=== PATIENT | male | born 1965 | race African-American/Black ===

== ENCOUNTER 2019-08-23 14:39 | Inpatient (IN) | payer OTHER ==
[~2019-08-23] VITALS: Ht 175.3 cm; Wt 98.0 kg
--- NOTE | 2019-08-23 15:00 | NUR ---
Patient admitted from home for clinical trials, calm and denies pain or any discomfort. Respiratory even and unlabored with room air. Kept bed in locked and low position. Will continue to monitor fro safety.
[2019-08-23] MEDS ORDERED: MISCELLANEOUS MED 1 EA EA PO SCH (16:00)
[2019-08-23] MEDS ORDERED: LORAZEPAM 1 MG TABLET PO PRN (16:00)
[2019-08-23] MEDS ORDERED: BENZTROPINE MESYLATE (1 MG) 1 MG TABLET PO PRN ×2 (16:00→16:30)
[2019-08-23] MEDS ORDERED: ZOLPIDEM TARTRATE 10 MG TABLET PO PRN (16:00)
[2019-08-23] MEDS ORDERED: PROPRANOLOL HCL 10 MG TABLET PO PRN (16:30)
[2019-08-23] MEDS ORDERED: MAGNESIUM HYDROXIDE 30 ML UDC PO PRN (16:30)
[2019-08-23] MEDS ORDERED: IBUPROFEN 200 MG TABLET PO PRN (16:30)
[2019-08-23] MEDS ORDERED: MAG HYDROX/AL HYDROX/SIMETH 30 ML UDC PO PRN (16:30)
[2019-08-23] MEDS: HYDROCHLOROTHIAZIDE 25 MG PO SCH (17:00)
--- NOTE | 2019-08-23 18:43 | NUR ---
Patient has hydrochlorothiazide scheduled at 1700, called x 3 but did not deliver, unable to given. Addendum: 08/23/19 at 1847 by SOFIA BEAR RN error
--- NOTE | 2019-08-23 18:47 | NUR ---
Patient has hydrochlorothiazide scheduled at 1700, called pharmacy x 3 but did not deliver, unable to given med.
--- NOTE | 2019-08-23 19:38 | NUR ---
GPS RN NOTES: OPENING RECEIVED PT IN HIS ROOM LAYING IN BED AWAKE. PT IS ALERT ORIENTED X4. PT IS CALM, COOPERATIVE, FRIENDLY, TALKATIVE, NEEDY, AND ISOLATIVE. PT IS IN HIS ROOM MOST OF THE TIME. NO S/S OF SOB. BREATHING EVEN AND UNLABORED. NO RESPIRATORY DISTRESS. NO S/S OF PAIN AT THIS TIME. NO SI OR HI AT THIS TIME. PT IS AMBULATORY AND CONTINENT. VITALS CHECKED WNL. CALL TOLENTION WITHIN REACH. ROOM SAFETY CHECK Q 15MIN. CONTINUE TO MONITOR.
[2019-08-23 20:20] VITALS: BP 148/78
--- NOTE | 2019-08-24 01:30 | NUR ---
GPS RN NOTES: UPON DOING ROUNDS PT AWAKE WALKING IN THE HALLWAY NEAR HIS ROOM. PT STATED HE WOULD LIKE TO WALK BECAUSE HE IS USUALLY AWAKE DURING THIS TIME WHEN HE IS AT HOME. OFFERED PT TO WALK IN THE DAY ROOM. PT AGREED AND IS CURRENTLY WALKING IN THE DAY ROOM INSTEAD OF HALLWAY. STAFF MEMBER CLOSE BY NEAR DAY ROOM TO MONITOR PT. PT STATED HE DOES NOT WANT TO SLEEP AT THIS TIME BECAUSE DURING THE DAY HE ALREADY SLEPT. PT HAS NO S/S OF PAIN AT THIS TIME. BREATHING EVENING AND UNLABORED. NO SOB. CONTINUE TO MONITOR.
[2019-08-24 08:00] VITALS: BP 128/88
[2019-08-24] MEDS: HYDROCHLOROTHIAZIDE 25 MG PO SCH ×2 (08:40→17:30)
[2019-08-24 16:00] VITALS: BP 135/86
--- NOTE | 2019-08-24 18:37 | NUR ---
GPS/RN NO CHANGES THROUGHOUT THE SHIFT PT AMBULATORY, VSS NO ACUTE DISTRESS NOTED SMOKE BREAKS PROVIDED , TOOK THE SHOWER TODAY,LIKES TO AMBULATE IN THE HALLWAY , PAIN MANAGEMENT PROVIDED ORDERED.
[2019-08-24] MEDS: ZOLPIDEM TARTRATE 10 MG TABLET PO PRN (21:06)
[2019-08-24] MEDS: ACETAMINOPHEN ES 500 MG TABLET PO PRN (21:06)
[2019-08-25] MEDS: ACETAMINOPHEN ES 500 MG TABLET PO PRN ×2 (05:06→20:45)
--- NOTE | 2019-08-25 06:30 | NUR ---
RN NOTES Patient noted able to take shower independently; had smoking by himself x3 within the shift; noted walking on the hallway for a few minutes x3 within the shift. No hallucination, inappropriate behavior noted within the shift. Patient denies any discomfort, no s/sx of distress noted. No new unusualities noted within the shift. All nursing needs attended, due meds given as ordered. Endorsed to the next shift.
[2019-08-25 08:00] VITALS: BP 125/77
[2019-08-25] MEDS: HYDROCHLOROTHIAZIDE 25 MG PO SCH ×2 (08:26→16:04)
--- NOTE | 2019-08-25 09:04 | NUR ---
RN-CO: Patient is alert and oriented x4, self care. Pt denied pain and discomforts.
--- NOTE | 2019-08-25 14:22 | NUR ---
RN-CO: PATIENT STATED THAT HE HEARS "CRAWLING SOUNDS IN HIS MIND." HE SAID HE IS USED TO IT.
[2019-08-25 15:39] VITALS: BP 123/78
--- NOTE | 2019-08-25 19:30 | NUR ---
GPS RN OPENING NOTE: RECEIVED PT IN ROOM, ABLE TO MAKE NEEDS KNOWN. PT COMPLIANT WITH MEDS AND PLAN OF CARE. PT DENIES CURRENT SI/HI/AH/VH. PT INDEPENDENT WITH ADLS AND INTAKE. PT IS ISOLATIVE AND WITHDRAWN.ALL NEEDS ATTENDED AND ANTICIPATED. WILL CONTINUE TO MONITOR PT Q15MIN FOR SAFETY AND BEHAVIOR.
[2019-08-25 19:51] VITALS: BP 146/91
--- NOTE | 2019-08-25 20:45 | NUR ---
GPS RN NOTE: PAIN PT. C/O OF SHOULDER PAIN AND REQUESTED TYLENOL. ADMINISTERED TYLENOL ES 1000 MG PO PRN ORDERED. WILL CONTINUE TO MONITOR FOR SAFETY AND BEHAVIOR.
[2019-08-25] MEDS: ZOLPIDEM TARTRATE 10 MG TABLET PO PRN (22:10)
--- NOTE | 2019-08-25 22:10 | NUR ---
GPS RN NOTE: INSOMNIA PT. C/O UNABLE TO SLEEP AND REQUESTED SLEEPING PILL. ADMINISTERED AMBIEN 10 MG PO PRN ORDERED. WILL CONTINUE TO MONITOR FOR SAFETY AND BEHAVIOR.
[2019-08-26 08:00] VITALS: BP 136/87
[2019-08-26] MEDS: HYDROCHLOROTHIAZIDE 25 MG PO SCH ×2 (09:28→16:15)
[2019-08-26] MEDS: IBUPROFEN 600 MG TABLET PO PRN ×2 (09:30→21:43)
[2019-08-26 16:00] VITALS: BP 123/94
--- NOTE | 2019-08-26 19:15 | NUR ---
GPS RN PM OPENING NOTE: REPORT RECIEVED FROM WALTER GUY. CLINICAL TRIAL PATIENT. REPORTS HAVING MILD VISUAL HALLUCINATIONS TODAY DENIES SI/HI. RECEIVED PT IN ROOM. BED DOWN AND LOCKED. PT COMPLIANT WITH MEDS AND PLAN OF CARE. PT DENIES CURRENT SI/HI. PT INDEPENDENT WITH ADLS AND INTAKE. WILL CONTINUE TO MONITOR PT Q15MIN FOR SAFETY AND BEHAVIOR.
[2019-08-26] MEDS: LORAZEPAM 1 MG TABLET FOR AGITATION PO PRN (20:01)
[2019-08-26 20:15] VITALS: BP 130/77
[2019-08-26] MEDS: ZOLPIDEM TARTRATE 10 MG TABLET PO PRN (21:43)
--- NOTE | 2019-08-27 07:30 | NUR ---
RN NOTE: REPORT RECEIVED, ASSESSMENT COMPLETE. PT RECEIVED LYING IN BED. NO ACUTE DISTRESS NOTED. VSS, AFEBRILE. PT A+OX3, ABLE TO MAKE NEEDS KNOWN. PT COMPLIANT WITH MEDICATION ADMINISTRATION AND PLAN OF CARE. NO ADVERSE RXN FROM MEDICATIONS NOTED. PT DENIES CURRENT SI/HI. AMBULATORY AND INDEPENDENT WITH ADLS AND INTAKE. WILL CONT TO MONITOR PT FOR SAFETY AND BEHAVIOR PER GPS PROTOCOL.
[2019-08-27 08:00] VITALS: BP 125/92
[2019-08-27] MEDS: HYDROCHLOROTHIAZIDE 25 MG PO SCH ×2 (09:03→16:24)
[2019-08-27] MEDS: IBUPROFEN 600 MG TABLET PO PRN (11:23)
--- NOTE | 2019-08-27 11:23 | NUR ---
RN NOTE: PAIN PT C/O 10 RIGHT SHOULDER PAIN. REQUESTING MOTRIN. MOTRIN PRN PO ADMINISTERED.
[2019-08-27 16:00] VITALS: BP 146/94
[2019-08-27 20:00] VITALS: BP 125/75
[2019-08-27] MEDS: LORAZEPAM 1 MG TABLET FOR AGITATION PO PRN (20:03)
--- NOTE | 2019-08-27 20:03 | NUR ---
ANXIETY: PRN ATIVAN GIVEN PATIENT VERBALIZED OF FEELING ANXIOUS & RESTLESS, REQUESTED TO GET ATIVAN. PRN ATIVAN 1 MG PO GIVEN ORDERED. WILL CONTINUE TO MONITOR.
[2019-08-27 20:12] VITALS: BP 125/75
[2019-08-27] MEDS: ZOLPIDEM TARTRATE 10 MG TABLET PO PRN (21:34)
--- NOTE | 2019-08-27 21:36 | NUR ---
PRN AMBIEN GIVEN PATIENT REQUESTED TO GET SLEEPING MEDICINE DUE TO SLEEPLESSNESS. PRN AMBIEN 10 MG PO GIVEN ORDERED. WILL CONTINUE TO MONITOR FOR EFFECTIVENESS.
[2019-08-27] MEDS: ACETAMINOPHEN ES 500 MG TABLET PO PRN (21:50)
--- NOTE | 2019-08-27 21:50 | NUR ---
PRN TYLENOL GIVEN PATIENT C/O RIGHT SHOULDER PAIN 06/03 & REQUESTED TO GET TYLENOL. PRN TYLENOL 1000 MG PO GIVEN ORDERED. WILL MONITOR CLOSELY FOR ANY CHANGES.
--- NOTE | 2019-08-27 23:47 | NUR ---
GPS RN NOTE PATIENT WOKE UP, AMBULATING IN THE HALLWAY, LISTENING TO THE MUSIC. CALM & COOPERATIVE AT THIS TIME. WILL CONTINUE TO MONITOR.
--- NOTE | 2019-08-28 01:16 | NUR ---
GPS RN NOTE PATIENT IS AWAKE & WANTED TO SMOKE, WENT DOWN TO SMOKE.
--- NOTE | 2019-08-28 01:30 | NUR ---
GPS RN NOTE PATIENT CAME BACK FROM SMOKING & WENT TO BED.
--- NOTE | 2019-08-28 07:30 | NUR ---
RN NOTE: RECEIVED PT LYING IN BED. NO ACUTE DISTRESS NOTED. VSS, AFEBRILE. PT A+OX3, ABLE TO MAKE NEEDS KNOWN. PT IS CALM AND COOPERATIVE. PT MEDICATED FOR PAIN TO RIGHT SHOULDER RATING 3/10. MORTIN ADMNISTERED. NO ADVERSE RXN TO MEDICATIONS NOTED. PT DENIES SI/HI AT PRESENT TIME. REPORTS AH OF "TAPPING SOUND" OVER NIGHT AND VH OF "BRANCHES AND SHADOWN". DENIES AH/VH AT PRESENT TIME. WILL CONT TO MONITOR PT FOR SAFETY AND BEHAVIOR PER GPS PROTOCOL.
[2019-08-28 08:00] VITALS: BP 147/98
[2019-08-28] MEDS: HYDROCHLOROTHIAZIDE 25 MG PO SCH ×2 (08:54→16:51)
[2019-08-28] MEDS: IBUPROFEN 600 MG TABLET PO PRN ×3 (08:58→21:37)
--- NOTE | 2019-08-28 09:01 | NUR ---
RN NOTE: PAIN PT C/O 06/03 RIGHT SHOULDER PAIN. MEDICATED WITH MOTRIN 600 MG PO PRN
[2019-08-28 16:27] VITALS: BP 122/99
--- NOTE | 2019-08-28 19:59 | NUR ---
GPS RN OPENING NOTE: RECEIVED PT IN ROOM, ABLE TO MAKE NEEDS KNOWN. PT COMPLIANT WITH MEDS AND PLAN OF CARE. PT DENIES CURRENT SI/HI/AH/VH. PT INDEPENDENT WITH ADLS AND INTAKE. PT IS ISOLATIVE AND WITHDRAWN.ALL NEEDS ATTENDED AND ANTICIPATED. WILL CONTINUE TO MONITOR FOR SAFETY AND BEHAVIOR.
[2019-08-28] MEDS: LORAZEPAM 1 MG TABLET FOR AGITATION PO PRN (20:18)
--- NOTE | 2019-08-28 20:18 | NUR ---
GPS RN NOTE: ANXIETY PT. C/O OF BEING ANXIOUS AND REQUESTED ATIVAN. ADMINISTERED ATIVAN 1MG PO PRN ORDERED. WILL CONTINUE TO MONITOR FOR SAFETY AND BEHAVIOR.
[2019-08-28 20:22] VITALS: BP 132/91
--- NOTE | 2019-08-28 21:37 | NUR ---
GPS RN NOTE: PAIN PT. C/O OF 09/03 SHOULDER PAIN AND REQUESTED IBUPROFEN. ADMINISTERED IBUPROFEN 600 MG PO PRN ORDERED. WILL CONTINUE TO MONITOR FOR SAFETY AND BEHAVIOR.
[2019-08-28] MEDS: ZOLPIDEM TARTRATE 10 MG TABLET PO PRN (21:38)
--- NOTE | 2019-08-28 21:38 | NUR ---
GPS RN NOTE: INSOMNIA PT. C/O UNABLE TO SLEEP AND REQUESTED FOR SLEEPING PILL. ADMINISTERED AMBIEN 10 MG PO PRN ORDERED. WILL CONTINUE TO MONITOR FOR SAFETY AND BEHAVIOR
[2019-08-29 08:00] VITALS: BP 121/87
[2019-08-29] MEDS: IBUPROFEN 600 MG TABLET PO PRN ×2 (08:31→22:06)
[2019-08-29] MEDS: HYDROCHLOROTHIAZIDE 25 MG PO SCH ×2 (08:31→16:37)
--- NOTE | 2019-08-29 08:56 | NUR ---
RN-CO: Patient is well groomed, stated that he still hear voices like whispers, crawling sound at night and having visual hallucinations like shadows. He is cooperative to care.
[2019-08-29 16:00] VITALS: BP 129/93
--- NOTE | 2019-08-29 19:30 | NUR ---
GPS RN NOTE, RECEIVED PATIENT AWAKE AND IN BED, PATIENT DENIES PAIN AT THIS TIME. PATIENT BREATHING IS UNLABORED WITH EQUAL RISE AND FALL OF THE CHEST. PATIENT IS ALERT AND ORIENTED X 4 ON ROOM AIR WITH A SPOO2 95%. PATIENT IS COMPLAINT WITH MEDICATION, BRIGHT, CALM, AND COOPERATIVE. PATIENT IS STILL AH AND VH AT THIS TIME. PATIENT DENIES SUICIDE AND HOMICIDAL IDEATIONS AT THIS TIME. PATIENT ASSISTED WITH TURNING AND REPOSITIONING Q2HR AND PRN FOR COMFORT AND CIRCULATION. PATIENT HAS NO NEEDS AT THIS TIME. PATIENT EDUCATED ON THE USE OF THE CALL TOLENTINO. PATIENT BED SIDE RAILS UP X 2 FOR SAFETY. PATIENT BED IS LOCKED AND LOW WILL CONTINUE TO MONITOR AND MAINTAIN SAFETY Q15 MIN WITH THE HELP OF STAFF.
[2019-08-29 20:07] VITALS: BP 134/93
[2019-08-29] MEDS: LORAZEPAM 1 MG TABLET FOR AGITATION PO PRN (20:21)
--- NOTE | 2019-08-29 20:21 | NUR ---
GPS RN NOTE, PATIENT HAS A COMPLAINT OF FEELING ANXIOUS AND IS REQUESTING ATIVAN AT THIS TIME. PATIENT VITAL SIGNS ARE STABLE. GAVE ATIVAN 1 MG PO Q4HR PRN ORDERED. WILL REASSESS FOR ANXIETY AND I WILL CONTINUE TO MONITOR THIS PATIENT.
[2019-08-29] MEDS: ZOLPIDEM TARTRATE 10 MG TABLET PO PRN (22:06)
--- NOTE | 2019-08-29 22:06 | NUR ---
GPS RN NOTE, PATIENT HAS A COMPLAINT OF CHRONIC RIGHT SHOULDER PAIN AT A 6 OUT 10 ON THE PAIN SCALE AND IS REQUESTING MOTRIN AT THIS TIME. PATIENT VITAL SIGNS ARE STABLE. GAVE MOTRIN 600 MG PO Q8HR PRN. WILL REASSESS PAIN AND I WILL CONTINUE TO MONITOR THIS PATIENT WITH THE HELP OF STAFF.
--- NOTE | 2019-08-29 22:06 | NUR ---
GPS RN NOTE, PATIENT HAS A COMPLAINT OF NOT BEING ABLE TO SLEEP AND IS REQUESTING AMBIEN AT THIS TIME. PATIENT VITAL SIGNS ARE STABLE. GAVE AMBIEN 10MG PO QHS PRN ORDERED. WILL REASSESS FOR INSOMNIA AND I WILL CONTINUE TO MONITOR THIS PATIENT.
[2019-08-30 08:00] VITALS: BP 141/91
[2019-08-30] MEDS: HYDROCHLOROTHIAZIDE 25 MG PO SCH ×2 (08:04→17:19)
[2019-08-30] MEDS: IBUPROFEN 600 MG TABLET PO PRN ×2 (08:04→22:03)
[2019-08-30 16:15] VITALS: BP 115/66
--- NOTE | 2019-08-30 19:30 | NUR ---
GPS RN NOTE, RECEIVED PATIENT AWAKE AND IN BED, PATIENT DENIES PAIN AT THIS TIME. PATIENT BREATHING IS UNLABORED WITH EQUAL RISE AND FALL OF THE CHEST. PATIENT IS ALERT AND ORIENTED X 4 ON ROOM AIR WITH A SPOO2 95%. PATIENT IS COMPLAINT WITH MEDICATION, PACING AT TIMES, CALM, AND COOPERATIVE. PATIENT VERBALIZED THAT HE THINKS HE SHOULD TAKE ATIVAN MORE OFTEN TO KEEP CALM. PATIENT IS STILL HAVING AH AND VH AT THIS TIME. PATIENT DENIES SUICIDE AND HOMICIDAL IDEATIONS AT THIS TIME. PATIENT ASSISTED WITH TURNING AND REPOSITIONING Q2HR AND PRN FOR COMFORT AND CIRCULATION. PATIENT HAS NO NEEDS AT THIS TIME. PATIENT EDUCATED ON THE USE OF THE CALL TOLENTINO. PATIENT BED SIDE RAILS UP X 2 FOR SAFETY. PATIENT BED IS LOCKED AND LOW WILL CONTINUE TO MONITOR AND MAINTAIN SAFETY Q15 MIN WITH THE HELP OF STAFF.
[2019-08-30 20:00] VITALS: BP 132/88
[2019-08-30] MEDS: LORAZEPAM 1 MG TABLET FOR AGITATION PO PRN (20:04)
--- NOTE | 2019-08-30 20:04 | NUR ---
GPS RN NOTE, PATIENT HAS A COMPLAINT OF FEELING ANXIOUS, RESTLESS, AND IS REQUESTING ATIVAN AT THIS TIME. PATIENT VITAL SIGNS ARE STABLE. GAVE ATIVAN 1 MG PO Q4HR PRN ORDERED. WILL REASSESS FOR ANXIETY AND I WILL CONTINUE TO MONITOR THIS PATIENT.
[2019-08-30] MEDS: ZOLPIDEM TARTRATE 10 MG TABLET PO PRN (22:03)
--- NOTE | 2019-08-30 22:04 | NUR ---
GPS RN NOTE, PATIENT HAS A COMPLAINT OF CHRONIC RIGHT SHOULDER PAIN AT A 4 OUT 10 ON THE PAIN SCALE AND IS REQUESTING MOTRIN AT THIS TIME. PATIENT VITAL SIGNS ARE STABLE. GAVE MOTRIN 600 MG PO Q8HR PRN. WILL REASSESS PAIN AND I WILL CONTINUE TO MONITOR THIS PATIENT WITH THE HELP OF STAFF.
[2019-08-31] MEDS: LORAZEPAM 1 MG TABLET FOR AGITATION PO PRN ×2 (02:38→20:10)
[2019-08-31] MEDS: ACETAMINOPHEN ES 500 MG TABLET PO PRN ×2 (04:40→17:46)
--- NOTE | 2019-08-31 04:40 | NUR ---
GPS RN NOTE, PATIENT HAS A COMPLAINT OF CHRONIC RIGHT SHOULDER PAIN AT A 2 OUT 10 ON THE PAIN SCALE AND IS REQUESTING TYLENOL ES AT THIS TIME. PATIENT VITAL SIGNS ARE STABLE. GAVE TYLENOL ES 1000MG PO Q8HR PRN. WILL REASSESS PAIN AND I WILL CONTINUE TO MONITOR THIS PATIENT WITH THE HELP OF STAFF.
[2019-08-31 08:00] VITALS: BP 122/88
[2019-08-31] MEDS: HYDROCHLOROTHIAZIDE 25 MG PO SCH ×2 (08:17→16:38)
[2019-08-31] MEDS: IBUPROFEN 600 MG TABLET PO PRN ×2 (08:24→22:41)
[2019-08-31 16:00] VITALS: BP 132/89
--- NOTE | 2019-08-31 19:30 | NUR ---
GPS-RN OPENING NOTE: RECEIVED PATIENT IN HIS ROOM LYING IN BED. AWAKE, A/OX4, IN NO APPARENT DISTRESS NOTED. PT STATED HE STILL HEARING VOICES WHISPERING, SOMEONE KNOCKING ON THE DOOR AND HAVING VISUAL HALLUCINATIONS LIKE SHADOWS. REORIENTATION PROVIDED. PT REQUESTED FOR ATIVAN. PRN ATIVAN GIVEN ORDERED. DENIES SI/HI AT THIS TIME. SAFETY PRECAUTIONS IN PLACE. WILL CONTINUE TO MONITOR FOR SAFETY AND BEHAVIOR.
[2019-08-31 20:00] VITALS: BP 121/98
--- NOTE | 2019-08-31 20:13 | NUR ---
GPS-RN NOTE: ANXIETY PATIENT C/O INCREASED ANXIETY. PT REQUESTED ATIVAN. ADMINISTERED ATIVAN 1MG PO ORDERED. WILL CONTINUE TO MONITOR FOR SAFETY.
[2019-08-31] MEDS: ZOLPIDEM TARTRATE 10 MG TABLET PO PRN (21:28)
--- NOTE | 2019-08-31 21:28 | NUR ---
GPS RN NOTE: INSOMNIA PT. C/O UNABLE TO SLEEP AND REQUESTED FOR SLEEPING PILL. ADMINISTERED AMBIEN 10 MG PO PRN ORDERED. WILL CONTINUE TO MONITOR.
[2019-09-01] MEDS: ACETAMINOPHEN ES 500 MG TABLET PO PRN (04:00)
[2019-09-01] MEDS: LORAZEPAM 1 MG TABLET FOR AGITATION PO PRN ×3 (04:00→20:00)
--- NOTE | 2019-09-01 04:00 | NUR ---
PRN TYLENOL GIVEN PATIENT C/O RIGHT SHOULDER PAIN ON A PAIN SCALE OF 3/10 & REQUESTED TO GET TYLENOL. PRN TYLENOL 1000 MG PO GIVEN ORDERED. WILL CONTINUE TO MONITOR FOR EFFECTIVENESS.
--- NOTE | 2019-09-01 04:00 | NUR ---
GPS-RN NOTE: ANXIETY PATIENT C/O FEELING ANXIOUS & RESTLESS, PT. REQUESTED FOR ATIVAN. PRN ATIVAN 1 MG PO GIVEN ORDERED. WILL CONTINUE TO MONITOR FOR SAFETY.
[2019-09-01 08:00] VITALS: BP 118/84
[2019-09-01] MEDS: HYDROCHLOROTHIAZIDE 25 MG PO SCH ×2 (08:54→17:21)
[2019-09-01] MEDS: IBUPROFEN 600 MG TABLET PO PRN ×2 (08:54→17:21)
--- NOTE | 2019-09-01 08:56 | NUR ---
rn notes administered Motrin 600 mg po,prn for right shoulder pain per patient request 09/03. continued monitoring.
--- NOTE | 2019-09-01 08:59 | NUR ---
rn notes administered Ativan 1 mg po prn for anxiety per patient request. v/s taken bp-118/84, p-73. continued monitoring.
[2019-09-01 16:00] VITALS: BP 131/94
--- NOTE | 2019-09-01 17:21 | NUR ---
rn notes administered Motrin 600 mg po prn for right arm pain .
--- NOTE | 2019-09-01 19:02 | NUR ---
GPS RN NOTES: OPENING RECEIVED PATIENT IN HIS ROOM LYING IN BED. AWAKE, A/OX4, IN NO APPARENT DISTRESS NOTED. BREATHING EVEN AND UNLABORED. NO SOB. NO PAIN NOTED. PT STATED HE HAS BEEN FEELING ANXIOUS AND PARANOID AT TIMES. PT IS COOPERATIVE, FRIENDLY, AND NEEDY. PT STATED THAT ATIVAN HAS BEEN HELPING HIM. REORIENTATION PROVIDED. DENIES SI/HI AT THIS TIME. SAFETY PRECAUTIONS IN PLACE. WILL CONTINUE TO MONITOR FOR SAFETY AND BEHAVIOR.
--- NOTE | 2019-09-01 20:01 | NUR ---
GPS RN NOTES: ANXIOUS PY C/O OF FEELING ANXIOUS. PT STATED, "I FEEL ANXIOUS RIGHT NOW MAY I HAVE ATIVAN." OFFERED ATICAN PRN PO ORDERED. PT AGREED AND TOLERATED MEDICATION WELL. CONTINUE TO MONITOR.
[2019-09-01 20:15] VITALS: BP 129/74
[2019-09-01] MEDS: ZOLPIDEM TARTRATE 10 MG TABLET PO PRN (21:36)
--- NOTE | 2019-09-01 21:38 | NUR ---
GPS RN NOTES: INSOMNIA PT C/O UNABLE TO SLEEP. PT REQUESTED SLEEPING MEDICATION. OFFERED AMBIEN PO PRN ORDERED. PT AGREED AND TOLERATED MEDICATION WELL. CONTINUE TO MONITOR.
--- NOTE | 2019-09-01 23:01 | NUR ---
GPS RN NOTES: INDIGESTION PT C/O OF INDIGESTION. PT STATED, " I HAD THAT VINEGAR DRESSING W/ MY SALAD AND THAT DIDN'T DO WELL WITH MT STOMACH." OFFERED MAALOX PRN PO. PT AGREED AND TOLERATED MEDICATION WELL. CONTINUE TO MONITOR.
[2019-09-02 01:29] VITALS: BP 127/86
[2019-09-02] MEDS: IBUPROFEN 600 MG TABLET PO PRN ×2 (01:48→21:51)
--- NOTE | 2019-09-02 01:49 | NUR ---
GPS RN NOTES: RIGHT SHOULDER PAIN PT C/O OF RIGHT SHOULDER PAIN. ASKED PT ON A SCALE FROM 0-10 WHAT IS THE PAIN. PT STATED, "7". CHECKED PTS VITALS. VITALS WNL. OFFERED MOTRIN 600 MG PO PRN ORDERED. PT AGREED AND TOLERATED MEDICATION WELL. CONTINUE TO MONITOR.
--- NOTE | 2019-09-02 04:59 | NUR ---
GPS RN NOTES: UPON DOING ROUNDS, PT IN HIS ROOM AWAKE. ENCOURAGE PATIENT TO EXPRESS THOUGHTS AND FEELINGS. PT STATED HE CANT SLEEP ANYMORE DUE TO A NIGHTMARE HE HAD. PT STATED, "ONCE I WAKE UP. I CANT REALLY SLEEP ANYMORE. " PT PREFER TO LEAVE THE LIGHTS ON. PT ALSO EXPRESSED HOW MUCH HE MISSES HIS PARTNER AND HOW HE IS NOT USE TO SLEEPING ALONE WITHOUT HER. PT WENT BACK TO BED RESTING. NO SOB. BREATHING EVEN AND UNLABORED. NO S/S OF RESP DISTRESS. CONTINUE TO MONITOR.
[2019-09-02] MEDS: ACETAMINOPHEN ES 500 MG TABLET PO PRN ×2 (06:54→19:21)
--- NOTE | 2019-09-02 06:56 | NUR ---
GPS RN NOTES: RIGHT SHOULDER PAIN PT C/O OF RIGHT SHOULDER PAIN. ASKED PT ON A SCALE FROM 0-10 WHAT IS THE PAIN. PT STATED, "3". OFFERED Tylenol PO PRN ORDERED. PT AGREED AND TOLERATED MEDICATION WELL. CONTINUE TO MONITOR.
--- NOTE | 2019-09-02 07:30 | NUR ---
RN OPENING NOTE: REPORT RECEIVED. ASSESSMENT COMPLETE. RECEIVED PT LYING IN BED. NO ACUTE DISTRESS NOTED. VSS, AFEBRILE. PT A+OX3,ABLE TO MAKE NEEDS KNOWN. PT C/O AH OF "TAPPING" AND VH OF "SHADOWS". PT C/O INCREASED ANXIETY AND INABILITY TO SLEEP AT NIGHT. PT COMPLIANT WITH MEDICATION ADMINISTRATION AND PLAN OF CARE. PT DENIES SI/HI AT PRESENT TIME. WILL CONT TO MONITOR PT FOR SAFETY AND BEHAVIOR PER GPS PROTOCOL.
[2019-09-02 08:00] VITALS: BP 123/84
[2019-09-02] MEDS: HYDROCHLOROTHIAZIDE 25 MG PO SCH ×2 (08:24→17:13)
[2019-09-02] MEDS: LORAZEPAM 1 MG TABLET FOR AGITATION PO PRN ×3 (08:31→19:04)
--- NOTE | 2019-09-02 08:31 | NUR ---
RN NOTE: PT C/O INCREASING ANXIETY. REQUESTING ATIVAN PRN. ATIVAN 1 MG PO PRN ADMINISTERED.
--- NOTE | 2019-09-02 12:54 | NUR ---
RN NOTE: ANXIETY PT C/O INCREASING ANXIETY. REQUESTING ATIVAN PRN. ATIVAN 1MG PO PRN ADMINISTERED.
[2019-09-02 16:00] VITALS: BP 117/86
--- NOTE | 2019-09-02 19:05 | NUR ---
RN NOTE: ANXIETY PT C/O INCREASED AGITATIO, AH AND VH. REQUESTING ATIVAN PRN. ATIVAN 1MG PO PRN ADMINISTERED.
--- NOTE | 2019-09-02 19:21 | NUR ---
GPS-RN: TYLENOL GIVEN PATIENT C/O RIGHT SHOULDER PAIN ON A PAIN SCALE OF 3/10 & REQUESTED FOR TYLENOL. PRN TYLENOL 1000 MG PO GIVEN ORDERED. WILL CONTINUE TO MONITOR FOR EFFECTIVENESS.
[2019-09-02 20:06] VITALS: BP 113/74
[2019-09-02] MEDS: ZOLPIDEM TARTRATE 10 MG TABLET PO PRN (21:36)
--- NOTE | 2019-09-02 21:36 | NUR ---
GPS RN NOTE: INSOMNIA PT. C/O UNABLE TO SLEEP AND REQUESTED FOR SLEEPING PILL. ADMINISTERED AMBIEN 10 MG PO PRN ORDERED. WILL CONTINUE TO MONITOR.
--- NOTE | 2019-09-02 21:51 | NUR ---
GPS RN NOTE: C/O RIGHT SHOULDER PAIN PT C/O OF RIGHT SHOULDER PAIN ON A PAIN SCALE OF 7/10. V/S WNL. PT REQUESTED FOR MOTRIN. ADMINISTERED MOTRIN 600 MG PO PRN ORDERED. WILL CONTINUE TO MONITOR EFFECTIVENESS OF MED.
[2019-09-03] MEDS: LORAZEPAM 1 MG TABLET FOR AGITATION PO PRN ×4 (02:28→20:58)
--- NOTE | 2019-09-03 02:28 | NUR ---
RN NOTE: ANXIETY PT C/O INCREASED ANXIETY. PT REQUESTED FOR ATIVAN. ADMINISTERED ATIVAN 1MG PO ORDERED. WILL CONTINUE TO MONITOR FOR SAFETY.
[2019-09-03] MEDS: IBUPROFEN 600 MG TABLET PO PRN ×2 (04:52→14:59)
[2019-09-03 08:00] VITALS: BP 112/96
[2019-09-03] MEDS: ACETAMINOPHEN ES 500 MG TABLET PO PRN ×2 (08:24→22:16)
[2019-09-03] MEDS: HYDROCHLOROTHIAZIDE 25 MG PO SCH ×2 (08:24→16:51)
--- NOTE | 2019-09-03 08:25 | NUR ---
RN NOTE: ANXIETY AND PAIN PT C/O INCREASED ANXIETY, AGITATION, AH AND VH. REQUESTING ATIVAN. ATIVAN 1MG PO PRN GIVEN. PT C/O 06/03 RIGHT SHOULDER PAIN. MEDICATED WITH TYLENOL 1000MG PO PRN.
--- NOTE | 2019-09-03 09:00 | NUR ---
RN NOTE: REPORT RECEIVED, ASSESSMENT COMPLETE. VSS, AFEBRILE. PT A+OX3, ABLE TO MAKE NEEDS KNOWN. PT IS ISOLATIVE AND WITHDRAWN. PT REPORTS CONT'S AH OF "TAPPING" AND VH OF "SHADOWNS" PT DENIES CAH/SI/HI. REPORTS INCREASED ANXIETY. MEDICATED WITH ATIVAN FOR ANIETY AND TYLENOL FOR RIGHT CHRONIC SHOULDER PAIN. PT INTERMITTENTLY SLEEPING. EASILY AROUSABLE. INDEPENDENT WITH SELF CARE, ADLS AND INTAKE. PT COMPLIANT WITH MEDICATION ADMINISTRATION AND PLAN OF CARE WILL CONT TO MONITOR PT FOR SAFETY AND BEHAVIOR PER GPS PROTOCOL.
--- NOTE | 2019-09-03 15:00 | NUR ---
RN NOTE: ANXIETY AND PAIN PT C/O INCREASING ANXIETY AND 3/10 RIGHT SHOULDER PAIN. MEDICATED WITH ATIVAN 1MG PO PRN AND IBRUPROFEN 600MG PO PRN
[2019-09-03 16:00] VITALS: BP 123/75
[2019-09-03 20:04] VITALS: BP 122/91
--- NOTE | 2019-09-03 20:58 | NUR ---
GPS RN NOTE: ANXIETY PT. C/O OF ANXIETY. ADMINISTERED ATIVAN 1MG PO PRN ORDERED. WILL CONTINUE TO MONITOR FOR SAFETY AND BEHAVIOR
[2019-09-03] MEDS: ZOLPIDEM TARTRATE 10 MG TABLET PO PRN (22:16)
--- NOTE | 2019-09-03 22:16 | NUR ---
GPS RN NOTE: PAIN PT. C/O OF SHOULDER PAIN. ADMINISTERED TYLENOL ES 1000 MG PO PRN ORDERED. WILL CONTINUE TO MONITOR FOR SAFETY AND BEHAVIOR
--- NOTE | 2019-09-03 22:16 | NUR ---
GPS RN NOTE: INSOMNIA PT. C/O UNABLE TO SLEEP. ADMINISTERED AMBIEN 10 MG PO PRN ORDERED. WILL CONTINUE TO MONITOR FOR SAFETY AND BEHAVIOR
[2019-09-04 08:00] VITALS: BP 127/89
[2019-09-04] MEDS: HYDROCHLOROTHIAZIDE 25 MG PO SCH ×2 (08:01→16:52)
[2019-09-04] MEDS: IBUPROFEN 600 MG TABLET PO PRN ×2 (08:08→14:50)
--- NOTE | 2019-09-04 09:25 | NUR ---
RN-CO:PATIENT TOOK HER AM MEDS, HE REMAINS PLEASANT TO STAFF AND COOPERATIVE TO CARE. HE STATED THAT HIS VISUAL AND AUDITORY HALLUCINATIONS IS SLIGHTLY BETTER THAN LAST WEEK AND APPEARS MOSTLY AT NIGHT THAT IS WHY HE KEEP THE LIGHTS ON.
[2019-09-04] MEDS: LORAZEPAM 1 MG TABLET FOR AGITATION PO PRN ×2 (12:45→20:45)
--- NOTE | 2019-09-04 12:45 | NUR ---
GPS/RN-NOTES PATIENT REQUESTING ATIVAN. ATIVAN 1MG P.O GIVEN PRN ORDER.
--- NOTE | 2019-09-04 14:50 | NUR ---
RN-CO: REQUESTED FOR MOTRIN FOR SHOULDER PAIN.
[2019-09-04 18:17] VITALS: BP 124/89
[2019-09-04 20:30] VITALS: BP 135/74
--- NOTE | 2019-09-04 20:45 | NUR ---
GPS RN NOTE: ANXIETY PT. C/O OF BEING ANXIOUS. ADMINISTERED ATIVAN 1 MG PO PRN ORDERED. WILL CONTINUE TO MONITOR FOR SAFETY AND BEHAVIOR.
[2019-09-04] MEDS: ACETAMINOPHEN ES 500 MG TABLET PO PRN (22:13)
[2019-09-04] MEDS: ZOLPIDEM TARTRATE 10 MG TABLET PO PRN (22:13)
--- NOTE | 2019-09-04 22:13 | NUR ---
GPS RN NOTE: PAIN PT. C/O OF SHOULDER PAIN. ADMINISTERED TYLENOL ES 1000 MG PO PRN ORDERED. WILL CONTINUE TO MONITOR.
--- NOTE | 2019-09-04 22:13 | NUR ---
GPS RN NOTE: INSOMNIA PT. C/O UNABLE TO SLEEP. ADMINISTERED AMBIEN 10 MG PO PRN ORDERED. WILL CONTINUE TO MONITOR FOR SAFETY AND BEHAVIOR.
[2019-09-05 08:00] VITALS: BP 123/62
[2019-09-05] MEDS: HYDROCHLOROTHIAZIDE 25 MG PO SCH ×2 (08:07→16:50)
[2019-09-05] MEDS: LORAZEPAM 1 MG TABLET FOR AGITATION PO PRN ×2 (09:43→21:57)
[2019-09-05 16:00] VITALS: BP 119/80
--- NOTE | 2019-09-05 19:30 | NUR ---
GPS RN NOTE, RECEIVED PATIENT AWAKE AND IN BED, PATIENT DENIES PAIN AT THIS TIME. PATIENT BREATHING IS UNLABORED WITH EQUAL RISE AND FALL OF THE CHEST. PATIENT IS ALERT AND ORIENTED X 4 ON ROOM AIR WITH A SPOO2 95%. PATIENT IS COMPLAINT WITH MEDICATION, BRIGHT, CALM, AND COOPERATIVE. PATIENT IS STILL HAVING AH AND VH AT THIS TIME BUT STATES, "THEIR VERY MINOR". PATIENT DENIES SUICIDE AND HOMICIDAL IDEATIONS AT THIS TIME. PATIENT ASSISTED WITH TURNING AND REPOSITIONING Q2HR AND PRN FOR COMFORT AND CIRCULATION. PATIENT HAS NO NEEDS AT THIS TIME. PATIENT EDUCATED ON THE USE OF THE CALL TOLENTINO. PATIENT BED SIDE RAILS UP X 2 FOR SAFETY. PATIENT BED IS LOCKED AND LOW WILL CONTINUE TO MONITOR AND MAINTAIN SAFETY Q15 MIN WITH THE HELP OF STAFF.
[2019-09-05 20:33] VITALS: BP 116/80
[2019-09-05] MEDS: IBUPROFEN 600 MG TABLET PO PRN (21:57)
--- NOTE | 2019-09-05 21:58 | NUR ---
GPS RN NOTE, PATIENT HAS A COMPLAINT OF CHRONIC RIGHT SHOULDER PAIN AT A 3 OUT 10 ON THE PAIN SCALE AND IS REQUESTING MOTRIN AT THIS TIME. PATIENT VITAL SIGNS ARE STABLE. GAVE MOTRIN 600 MG PO Q8HR PRN. WILL REASSESS PAIN AND I WILL CONTINUE TO MONITOR THIS PATIENT WITH THE HELP OF STAFF.
[2019-09-05] MEDS: ZOLPIDEM TARTRATE 10 MG TABLET PO PRN (22:43)
[2019-09-06 08:00] VITALS: BP 111/71
[2019-09-06] MEDS: HYDROCHLOROTHIAZIDE 25 MG PO SCH ×2 (09:00→16:36)
[2019-09-06] MEDS: IBUPROFEN 600 MG TABLET PO PRN ×2 (13:59→21:24)
[2019-09-06 16:00] VITALS: BP 120/74
[2019-09-06 19:30] VITALS: BP 127/83
[2019-09-06] MEDS: LORAZEPAM 1 MG TABLET PO PRN (20:41)
[2019-09-06] MEDS: ZOLPIDEM TARTRATE 10 MG TABLET PO PRN (21:24)
[2019-09-06] MEDS: [UNRECOGNIZED DRUG - OTHER] PO SCH (22:15)
--- NOTE | 2019-09-06 23:04 | NUR ---
GPS RN NOTE: AT ABOUT 2034 PT COMPLAINED OF ANXIETY LEVEL OF 7/10, ATIVAN 1MG/1 TAB GIVEN PO ORDERED. AT 2119 PT COMPLAINED OF RIGHT SHOULDER PAIN LEVEL OF 6/10 AND WAS GIVEN MOTRIN 600MG 1 TAP PO ORDERED. PT ALSO REPORTED INSOMNIA AND ASKED FOR SLEEP PILL, AMBIEN 10MG 1 TAB GIVEN PO ORDERED. PT HAS NO BEHAVIORAL ISSUES AT THIS TIME. DENIES SI, HI AT THIS TIME. RESPIRATION EVEN AND UNLABORED WITH EQUAL RISE AND FALL OF THE CHEST, ON ROOM AIR WITH SPO2 OF 97%. UPON REASSESSMENT PT REPORTS HE NO LONGER HAS PAIN AND ANXIETY. PT IS CURRENTLY SLEEPING. WILL CONTINUE TO MONITOR.
[2019-09-07] MEDS: ACETAMINOPHEN ES 500 MG TABLET PO PRN ×2 (02:01→12:28)
[2019-09-07] MEDS: IBUPROFEN 600 MG TABLET PO PRN ×2 (07:34→21:13)
[2019-09-07 08:00] VITALS: BP 107/74
[2019-09-07] MEDS: HYDROCHLOROTHIAZIDE 25 MG PO SCH ×2 (08:03→16:39)
--- NOTE | 2019-09-07 09:23 | NUR ---
RN-CO:Patient remains very polite, compliant with meds, focus on self care. He complained of shoulder pain and on and off anxiety. He is withdrawn but keeps himself entertain listening to music in his bedroom.
[2019-09-07 16:00] VITALS: BP 127/86
--- NOTE | 2019-09-07 19:45 | NUR ---
GPS-RN NOTE: PATIENT IN HIS ROOM LYING IN BED READING BOOKS. AWAKE, ALERT AND ORIENTED X4, IN NO APPARENT DISTRESS NOTED. PT STATED HE STILL HEARING VOICES LIKE WHISPERING, LAUGHING, SCRATCHING ON THE FLOORS AND WINDOWS. AND PT STATING HE STILL SEEING THINGS LIKE SHADOWS ON THE WALL. REORIENTATION PROVIDED. PT REQUESTED FOR ATIVAN. PRN GIVEN ORDERED. DENIES SI/HI AT THIS TIME.SAFETY PRECAUTIONS IN PLACE. WILL CONTINUE TO MONITOR FOR SAFETY AND BEHAVIOR.
[2019-09-07] MEDS: LORAZEPAM 1 MG TABLET PO PRN (20:26)
--- NOTE | 2019-09-07 20:26 | NUR ---
GPS-RN NOTE: ANXIETY PATIENT C/O FEELING ANXIOUS. PT. REQUESTED FOR ATIVAN. PRN ATIVAN 1 MG PO GIVEN ORDERED. WILL CONTINUE TO MONITOR FOR SAFETY.
[2019-09-07 20:34] VITALS: BP 124/85
[2019-09-07] MEDS: ZOLPIDEM TARTRATE 10 MG TABLET PO PRN (21:30)
[2019-09-07] MEDS: [UNRECOGNIZED DRUG - OTHER] PO SCH (21:30)
--- NOTE | 2019-09-07 21:34 | NUR ---
GPS RN NOTE: INSOMNIA PT. C/O INABILITY TO SLEEP. ADMINISTERED AMBIEN 10MG PO PRN ORDERED. WILL CONTINUE TO MONITOR.
--- NOTE | 2019-09-07 22:00 | NUR ---
GPS-RN NOTE: PATIENT TOOK HIS SCHEDULED INVESTIGATIONAL MEDICATION WITH NO ADVERSE SIDE EFFECTS NOTED. WILL CONTINUE TO MONITOR.
[2019-09-08 08:00] VITALS: BP 122/76
[2019-09-08] MEDS: IBUPROFEN 600 MG TABLET PO PRN ×2 (08:29→21:51)
[2019-09-08] MEDS: HYDROCHLOROTHIAZIDE 25 MG PO SCH ×2 (08:29→17:24)
[2019-09-08] MEDS: LORAZEPAM 1 MG TABLET PO PRN (08:29)
[2019-09-08 16:00] VITALS: BP 123/82
[2019-09-08 20:19] VITALS: BP 119/76
[2019-09-08] MEDS: [UNRECOGNIZED DRUG - OTHER] PO SCH (21:15)
--- NOTE | 2019-09-08 21:51 | NUR ---
RN NOTES PATIENT COMPLAINING OF RIGHT SHOULDER PAIN, STATING PAIN LEVEL 7/10. 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 ADMINISTERED PRN PO MOTRIN 600mg ORDERED. WILL CONTINUE TO MONITOR PATIENT.
[2019-09-08] MEDS: ZOLPIDEM TARTRATE 10 MG TABLET PO PRN (21:54)
--- NOTE | 2019-09-08 21:54 | NUR ---
RN NOTES PATIENT COMPLAINING OF NOT BEING ABLE TO FALL ASLEEP AND REQUESTING SLEEPING AID. ADMINISTERED PRN AMBIEN PO 10mg ORDERED. WILL CONTINUE TO MONITOR PATIENT.
[2019-09-09 08:00] VITALS: BP 127/86
[2019-09-09] MEDS: HYDROCHLOROTHIAZIDE 25 MG PO SCH ×2 (08:17→17:36)
[2019-09-09] MEDS ORDERED: LORAZEPAM 1 MG TABLET PO PRN (12:00)
[2019-09-09 16:00] VITALS: BP 133/65
[2019-09-09] MEDS: ACETAMINOPHEN ES 500 MG TABLET PO PRN (17:43)
--- NOTE | 2019-09-09 17:44 | NUR ---
RN NOTE:PATIENT C/O PAIN RIGHT SHOULDER 09/03 MEDICATED WITH TYLENOL 650MG PO X1 WILL CONTINUE TO MONITOR FOR PAIN .
--- NOTE | 2019-09-09 19:25 | NUR ---
GPS RN NOTES: OPENING RECEIVED PATIENT IN HIS ROOM LYING IN BED. AWAKE, A/OX4, IN NO APPARENT DISTRESS NOTED. BREATHING EVEN AND UNLABORED. NO SOB. NO PAIN NOTED. PT IS COOPERATIVE, FRIENDLY, QUIET,RESERVED, GUARDED AND ISOLATIVE. PT DENIES SI/HI AT THIS TIME. SAFETY PRECAUTIONS IN PLACE. WILL CONTINUE TO MONITOR FOR SAFETY AND BEHAVIOR.
[2019-09-09 20:51] VITALS: BP 124/77
[2019-09-09] MEDS: [UNRECOGNIZED DRUG - OTHER] PO SCH (21:00)
[2019-09-10 08:00] VITALS: BP 117/76
[2019-09-10] MEDS: HYDROCHLOROTHIAZIDE 25 MG PO SCH ×2 (08:28→16:44)
--- NOTE | 2019-09-10 10:06 | NUR ---
RN-CO:PATIENT TOOK HIS MORNING MEDICATIONS. HE REMAINS TO BE ISOLATIVE. HE STATED THAT HE THINKS THAT THE INVESTIGATIONAL MEDICINE IS SLIGHTLY HELPING HIM SINCE HE HAS STABLE AUDITORY HALLUCINATIONS AND V/H.HE STATED THAT OF NOW HE IS NOT ANXIOUS.
[2019-09-10 16:00] VITALS: BP 137/72
--- NOTE | 2019-09-10 19:30 | NUR ---
GPS RN NOTES RECEIVED PATIENT FROM MORNING SHIFT, ALERT AND ORIENTED X 3 WITHDRAWN AND CALM. VERBALLY RESPONSIVE AND ABLE TO FOLLOW DIRECTIONS. BREATHING REGULAR AND UNLABORED ON ROOM. DENIES SUICIDAL IDEATION OR HALLUCINATION. NO COMPLAINTS OF PAIN/DISCOMFORT REPORTED AT THIS TIME. BED LOW AND LOCKED ON SEMI FOWLERS POSITION. WILL CLOSELY MONITOR FOR SAFETY AND BEHAVIOR.
[2019-09-10 20:00] VITALS: BP 119/77
[2019-09-10 20:07] VITALS: BP 119/77
[2019-09-10] MEDS: [UNRECOGNIZED DRUG - OTHER] PO SCH (21:25)
[2019-09-10] MEDS: ACETAMINOPHEN ES 500 MG TABLET PO PRN (21:26)
--- NOTE | 2019-09-10 21:30 | NUR ---
GPS RN NOTES COMPLAINED OF 3/10 SHOULDER PAIN, TYLENOL ES 1000MG GIVEN BY MOUTH. NON-PHARMACOLOGICAL INTERVENTIONS PROVIDED. WILL CONTINUE TO MONITOR.
[2019-09-11 08:00] VITALS: BP 122/84
[2019-09-11] MEDS: HYDROCHLOROTHIAZIDE 25 MG PO SCH ×2 (08:05→16:38)
[2019-09-11 16:00] VITALS: BP 146/77
[2019-09-11] MEDS: ZOLPIDEM TARTRATE 10 MG TABLET PO PRN (21:23)
[2019-09-11] MEDS: ACETAMINOPHEN ES 500 MG TABLET PO PRN (21:23)
[2019-09-11] MEDS: [UNRECOGNIZED DRUG - OTHER] PO SCH (21:24)
[2019-09-12 08:00] VITALS: BP 112/77
[2019-09-12] MEDS: HYDROCHLOROTHIAZIDE 25 MG PO SCH ×2 (08:24→16:42)
[2019-09-12] MEDS: ACETAMINOPHEN ES 500 MG TABLET PO PRN ×2 (09:06→21:04)
--- NOTE | 2019-09-12 09:08 | NUR ---
RN-CO: Patient asked for Tylenol 1000mg PO for shoulder pain.
[2019-09-12 16:00] VITALS: BP 124/75
[2019-09-12 20:00] VITALS: BP 113/75
--- NOTE | 2019-09-12 20:00 | NUR ---
GPS/RN OPENING NOTES RECEIVED PATIENT, ALERT, ,ORIENTED, ABLE TO VERBALIZED NEEDS, REPORTED AND REQUESTED THAT HE WILL BE TAKING HIS MEDICATION BY 2100. RECEIVED ENDORSEMENT FROM AM RN FOR [facility].
[2019-09-12] MEDS: ZOLPIDEM TARTRATE 10 MG TABLET PO PRN (21:04)
[2019-09-12] MEDS: [UNRECOGNIZED DRUG - OTHER] PO SCH (21:04)
[2019-09-13 08:00] VITALS: BP 121/89
[2019-09-13] MEDS: HYDROCHLOROTHIAZIDE 25 MG PO SCH (08:08)
--- NOTE | 2019-09-13 08:53 | NUR ---
Dr. Smith gave an order to D/c today and will give prescriptions on his office. pt. without distress, denies suicidal and homicidal. Belongings ready and discharge papers ready.
--- NOTE | 2019-09-13 09:30 | NUR ---
Pt. left the unit with belongings and discharge papers. Pt. signed the discharge papers. Pt. was picked up by Zahra Fulton, clinic staff of [facility]. Left without distress, ambulatory and on stable condition.
[2019-09-13] MEDS ORDERED: LORAZEPAM 1 MG TABLET PO PRN (12:00)
[2019-09-20] MEDS ORDERED: LORAZEPAM 1 MG TABLET PO PRN (12:00)
[2019-09-27] MEDS ORDERED: LORAZEPAM 1 MG TABLET PO PRN (12:00)
[2019-10-04] MEDS ORDERED: LORAZEPAM 1 MG TABLET PO PRN (12:00)
[2019-10-11] MEDS ORDERED: LORAZEPAM 1 MG TABLET PO PRN (12:00)
[2019-10-18] MEDS ORDERED: LORAZEPAM 1 MG TABLET PO PRN (12:00)
== END 2019-09-13 09:35 | disposition home or self-care (01) | DRG 951 ==
LOC: GPS 14:39 → MEDOV2 20:01
PROVIDERS: ADMIT Psychiatry & Neurology Psychiatry; ATTEND Psychiatry & Neurology Psychiatry
DX: Z00.6 Encounter for examination for normal comparison and control in clinical research program (principal); F20.0 Paranoid schizophrenia; G47.00 Insomnia, unspecified; F12.90 Cannabis use, unspecified, uncomplicated; I10 Essential (primary) hypertension; F14.21 Cocaine dependence, in remission
CPT/HCPCS: G0378